=== PATIENT | female | born 1955 | race Two or more races ===

== ENCOUNTER 2016-09-04 15:07 | Emergency (ER) | payer OTHER ==
--- NOTE | 2016-09-04 16:16 | EDPHY ---
H & P Time Seen by Provider: 09/04/16 15:34 HPI/ROS: HPI Right leg pain. 60-year-old female by private vehicle. This patient reports that 1 month ago she fell off of a chair and injured her right leg. Her healthcare is through [facility]. She saw her [facility] physician regarding this about a week later. She had multiple x-rays done. All were negative. She then reports that the pain to her right knee and right hip persisted. She reports that she then developed some black and blue over the anterior aspect of her right leg. She was again seen by her [facility] physician. X-rays were not repeated she was told she would get better and she was sent home. She comes in to our emergency department today stating that she noticed that her right leg seems slightly more swollen and more red than her left leg. She also complains of continued pain in the right hip and right knee. No fever. No history of diabetes. No history of diabetes or peripheral vascular disease. ROS: Constitutional: No fever, no chills. No weakness. Eyes: No discharge. No changes in vision. ENT: No sore throat. No nasal congestion or rhinorrhea. Respiratory: No cough. No shortness of breath. Cardiac: No chest pain, no palpitations. Gastrointestinal: No abdominal pain, no vomiting, no diarrhea. Genitourinary: No hematuria. No dysuria or increased frequency with urination. Musculoskeletal: No back pain. No neck pain. As above. Skin: As above. Neurological: No headache. No focal weakness or altered sensation. Past medical history: Insomnia. Allergies. Anemia. As above. Social history: Here by herself. Nonsmoker. Physical Exam: General Appearance: Alert, no distress. This patient is responding to questions appropriately and in full sentences. This patient appears well- hydrated and well-nourished. Eyes: Pupils equal and round no pallor or injection. No lid edema, erythema or injection. Right lower extremity exam: She is able to get up from her chair and ambulate with a normal gait. Weight-bearing does not appear to cause her much pain. There is no pain elicited with axial loading of her right leg, knee, femur and hip. The right hip joint ranges without any significant pain or impingement. The right knee joint is stable to anterior posterior drawer testing and valgus and varus stress testing. The right lower extremity does appear to be slightly larger in appearance the left lower extremity. She does not have significant pitting edema. No palpable cords. Negative Nela sign. There is a very faint erythema without significant warmth involving the anterior aspect of the proximal ankle up into the anterior medial distal leg. The right lower extremity is neurovascularly intact Neurological: Motor sensory function is grossly intact. Cranial nerves are normal. Gait is normal. Skin: Warm and dry, no rashes. Musculoskeletal: As above. Extremities are symmetrical. All joints range without pain or impingement. Psychiatric: No agitation. No depression. Database: EKG: Imaging: Right lower extremity Doppler ultrasound: Negative for DVT or other pathology. Results were discussed with staff radiologist Dr. Hayden Stringer. Procedures: Emergency department course: After my evaluation, explained that I would obtain a right lower extremity ultrasound to evaluate for possible DVT. Her vital signs were reviewed. She is afebrile. Borderline tachycardic. It is possible that the faint erythema involving her right leg this is an early cellulitis. 4:55 p.m., patient re-evaluated. She appears comfortable. Results of her ultrasound were discussed. I discussed the possibility of an early cellulitis. Her primary care physician was certainly concerned about this. She has a follow-up appointment with her primary care physician on Wednesday of next week. Plan will be to start her on Keflex in the emergency department and continue her on this medication through her follow-up on Wednesday. She feels comfortable with this. Return to emergency department precautions were thoroughly reviewed with her. All of her questions were answered. She was discharged in good condition. Differential Diagnosis: The differential diagnosis on this patient includes but is not limited to right lower extremity DVT, early cellulitis. Fracture, subluxation, dislocation, ligamentous injury involving the right lower extremity unlikely. This represents a partial list of diagnoses considered. These considerations are based on history, physical exam, past history, reassessment and diagnostic testing. Smoking Status: Never smoked Constitutional: Initial Vital Signs Temperature (C) 37 C 09/04/16 15:26 Heart Rate 101 H 09/04/16 15:26 Respiratory Rate 20 09/04/16 15:26 Blood Pressure 144/81 H 09/04/16 15:26 O2 Sat (%) 92 09/04/16 15:26 O2 Delivery Mode Room Air Allergies/Adverse Reactions: No Known Allergies Allergy (Unverified 09/04/16 15:25) Home Medications: Medication Instructions Recorded Cephalexin [Keflex (*)] 500 mg PO Q6 7 Days 09/04/16 IRON 09/04/16 Paxil 09/04/16 Paxil 09/04/16 ZYRTEC 09/04/16 Medical Decision Making - Diagnostics Imaging Results: Imaging Impressions Extremity Venous Study 09/04/16 16:05 Impression: No evidence of deep vein thrombosis. Findings discussed with Nelson Jane MD 09/04/2016 at 16:42. Departure - Departure Disposition: Home, Routine, Self-Care Clinical Impression: Pain and swelling of right lower extremity Condition: Good Instructions: Leg Edema (ED) Additional Instructions: Read and follow provided instructions. Follow-up with your primary care physician as scheduled on Wednesday for re- evaluation. Take antibiotic until that time. It can then be decided whether to continue on this antibiotic or change this medication at that time Take medication as prescribed. Ibuprofen dosin mg every 6 hours with meals for the next 3 days only. Take this only as needed for pain. Return to the emergency department for worsening pain, fever, redness spreading up your leg or other serious concerns. Referrals: NONE *PRIMARY CARE P,. [Primary Care Provider] - As per Instructions Prescriptions: Cephalexin [Keflex (*)] 500 mg PO Q6 7 Days
[2016-09-04] MEDS ORDERED: CEPHALEXIN 500 MG CAP PO ONE (16:55)
[2016-09-04 17:48] VITALS: BP 139/77; PULSE 82; RESP 18; TEMP 97.9; O2SAT 94
[2016-09-05] MEDS ORDERED: GADOBUTROL 10 ML VIAL IVP ONE (11:04)
== END 2016-09-04 17:07 | disposition home or self-care (01) ==
LOC: CED 15:07
DX: M79.604 Pain in right leg (principal); M79.89 Other specified soft tissue disorders
CPT/HCPCS: 93971-PO; A9585

== ENCOUNTER → 2016-09-10 | Outpatient (CLI) | payer OTHER | LOC: CIMAGING 15:02 | PROVIDERS: ATTEND Physical Medicine & Rehabilitation | DX: M79.661 Pain in right lower leg (principal) | CPT/HCPCS: 73590-PO ==

== ENCOUNTER → 2017-01-06 | Outpatient (CLI) | payer OTHER | LOC: CIMAGING 15:21 | PROVIDERS: ATTEND Physical Medicine & Rehabilitation | DX: M25.551 Pain in right hip (principal) | CPT/HCPCS: 73502-PO ==